=== PATIENT | female | born 1925 | race Caucasian/White ===

== ENCOUNTER 2017-05-17 11:40 | Emergency (ER) | payer MEDICARE, BC ==
[~2017-05-17] VITALS: Ht 165.1 cm; Wt 78.0 kg
--- NOTE | ~2017-05-17 | CR206 ---
[facility] A Service [facility] RADIOLOGY TEXT RESULTS PATIENT: JOSE ROMO LOCATION: SED : [birth year] UNIT #: [id number] AGE: [address]: Santos Elizabeth MD SEX: F ORDER DR: [id number] [address] [address] [id number] E MR#: [id number] Acc #: [id number] NAME: JOSE ROMO. : 1925 SEX: F STUDY DATE/TIME: 05/17/2017 12:28 UNIT: SED ROOM: STUDY DESCRIPTION: CR Pelvis 1 or 2 Views Attending Physician: Santos Elizabeth M.D. Ordering Physician: Santos Elizabeth M.D. MEDICAL IMAGING REPORT This report is preliminary unless electronic signature is present. EXAM AP radiograph pelvis 05/17/2017. HISTORY Trauma. Fell, hit head. Lower right leg pain. Possible loss of consciousness. TECHNIQUE AP radiograph of the pelvis is presented. COMPARISON No comparison. 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 These changes are felt to be degenerative in etiology. The bony ring of pelvis is intact. Moderate narrowing, bilateral hip joints. The bilateral proximal femurs appear intact. Periarticular soft tissues show no acute-appearing abnormality. Visualized bowel gas pattern normal. Calcifications in the pelvis, likely phleboliths. Atherosclerotic arterial calcifications noted. Dictated by... Pedro La M.D. THIS IS AN ELECTRONICALLY VERIFIED REPORT Pedro La M.D. at 05/20/2017 10:33 AM BIANCA/robbin [facility] A [facility] RADIOLOGY TEXT RESULTS PATIENT: JOSE ROMO LOCATION: SED : [birth year] UNIT #: [id number] AGE: [address]: Santos Elizabeth MD SEX: F ORDER DR: TD: 05/17/2017 16:01 JOB #: [id number] MEDICAL IMAGING REPORT Page 1 of 1
--- NOTE | ~2017-05-17 | CT71 ---
[facility]. [facility] A Service of [facility] RADIOLOGY TEXT RESULTS PATIENT: JOSE ROMO LOCATION: SED : [birth year] UNIT #: [id number] AGE: [address]: Santos Elizabeth MD SEX: F ORDER DR: [id number] [address] [address] [id number] E MR#: [id number] #: [id number] NAME: JOSE ROMO. : 1925 SEX: F STUDY DATE/TIME: 05/17/2017 12:28 UNIT: SED ROOM: STUDY DESCRIPTION: CT Head Wo Contrast Attending Physician: Santos Elizabeth M.D. Ordering Physician: Santos Elizabeth M.D. MEDICAL IMAGING REPORT This report is preliminary unless electronic signature is present. EXAM CT head without contrast, 05/17/2017 HISTORY Fell and hit head. Lower right leg pain. Possible loss of consciousness. Hit head. Small laceration over right eye. Bruising right knee. TECHNIQUE CT head performed skull base through vertex without intravenous contrast. This CT exam was performed with one or more of the following radiation dose reduction techniques: automatic exposure control, adjustment of mA and/or kV according to patient size, and iterative reconstruction. COMPARISON No comparisons. FINDINGS Brainstem unremarkable. Cerebellum and cerebral hemispheres show normal owens matter-white matter differentiation. No hemorrhage. No evidence of acute cortical ischemia. The midline structures are nondisplaced. No acute-appearing basal ganglia abnormality. There are periventricular and deep white matter tract probable sequelae of chronic microvascular ischemia bilaterally. There are bilateral basal ganglia calcifications. Ventricles, cisterns and sulci show mild to moderate generalized enlargement, consistent with generalized atrophy. There is no intra- or extraaxial mass effect or abnormal intracranial fluid collection. There are cavernous carotid and distal vertebral arterial calcifications. Intraorbital soft tissues unremarkable in visualized extent. Visualized paranasal sinuses and mastoid air cells are clear. Soft tissue swelling, right superolateral periorbital soft tissues. No subcutaneous air or radiodense foreign body. IMPRESSION [facility] A Service of [facility] RADIOLOGY TEXT RESULTS PATIENT: JOSE ROMO LOCATION: [facility] : [birth year] UNIT #: [id number] AGE: [address]: Santos Elizabeth MD SEX: F ORDER DR: 1. No acute abnormality is seen in the brain. If patient has ongoing neurologic symptoms, consider follow up imaging. 2. Chronic changes include: Periventricular and deep white matter tract probable sequelae of chronic microvascular ischemia, mild to moderate generalized atrophy, basal ganglia calcifications, and cavernous carotid and distal vertebral arterial calcifications. 3. Soft tissue swelling, right periorbital soft tissues in the superolateral region likely reflecting the patient's stated trauma. No subcutaneous air or radiodense foreign body. 4. No fracture. Dictated by... Pedro La M.D. THIS IS AN ELECTRONICALLY VERIFIED REPORT Pedro La M.D. at 05/20/2017 10:33 AM BIANCA/robbin TD: 05/17/2017 16:28 JOB #: [id number] MEDICAL IMAGING REPORT Page 1 of 1
--- NOTE | ~2017-05-17 | CR173 ---
[facility] A Service of [facility] RADIOLOGY TEXT RESULTS PATIENT: JOSE ROMO LOCATION: SED : [birth year] UNIT #: [id number] AGE: [address]: Santos Elizabeth MD SEX: F ORDER DR: [id number] [place] [id number] E MR#: [id number] Acc #: [id number] NAME: JOSE ROMO : 1925 SEX: F STUDY DATE/TIME: 05/17/2017 12:28 UNIT: SED ROOM: STUDY DESCRIPTION: CR Knee 3 Views Rt Attending Physician: Santos Elizabeth M.D. Ordering Physician: Santos Elizabeth M.D. MEDICAL IMAGING REPORT This report is preliminary unless electronic signature is present. EXAM Right knee series 05/17/2017. HISTORY Trauma. Fell hit head, lower right leg pain, possible loss of consciousness, 08:30 a.m. Small laceration over right eye, bruising. TECHNIQUE Right knee AP, lateral, swimmers views of the right knee are presented. FINDINGS No fracture or malalignment. The joint spaces are intact. No joint effusion. No soft tissue defect, subcutaneous air or radiodense foreign body. Dictated by... Pedro aL M.D. THIS IS AN ELECTRONICALLY VERIFIED REPORT Pedro La M.D. at 05/20/2017 10:33 AM BIANCA/corona TD: 05/17/2017 15:53 JOB #: [id number] MEDICAL IMAGING REPORT Page 1 of 1
[~2017-05-17 11:40] MED LIST: CENTRUM SILVER PO; FISH OIL 1,2001 CAP PO
== END 2017-05-17 13:05 | disposition home or self-care (01) ==
LOC: SED 11:40
DX: S00.83XA Contusion of other part of head, initial encounter (principal); S81.011A Laceration without foreign body, right knee, initial encounter; W01.198A Fall on same level from slipping, tripping and stumbling with subsequent striking against other object, initial encounter; Y92.009 Unspecified place in unspecified non-institutional (private) residence as the place of occurrence of the external cause
CPT/HCPCS: 70450; 72170; 73562; 90471; 90715; 99284